=== PATIENT | male | born 1965 | race African-American/Black ===

== ENCOUNTER 2019-08-23 15:08 | Emergency (ER) | payer BC, OTHER ==
[~2019-08-23] VITALS: Ht 188 cm; Wt 111.1 kg
[2019-08-23] MEDS ORDERED: PROTONIX40 M2 PO (15:28)
[2019-08-23] MEDS ORDERED: TOPAMAX100 MG PO (15:29)
[2019-08-23 15:45] LABS: ABSOLUTE NEUTROPHILS 3.9 thou/uL (1.4-8.2); BASOPHILS 0.4 % (0.0-2.0); EOSINOPHILS 1.6 % (0.0-3.0); HEMATOCRIT 45.2 % (42.0-52.0); LYMPHOCYTES 53.5 % (24.0-44.0); MCH 28.5 pg (26.0-34.0); MCHC 33.3 g/dL (28.0-37.0); MCV 85.7 fL (80.0-100.0); MONOCYTES 4.8 % (1.0-8.0); PLATELET COUNT 247 thou/uL (150-400); POLYS 39.7 % (36.0-66.0); RBC 5.28 mil/uL (4.50-6.00); RDW 15.2 % (10.5-14.5); WBC 9.7 thou/uL (4.0-11.0)
[2019-08-23 15:48] LABS: CALCIUM 9.7 mg/dL (8.5-10.1); CREATININE 1.2 mg/dL (0.7-1.3); MAGNESIUM 1.6 mg/dL (1.8-2.4); POTASSIUM 3.8 mmol/L (3.5-5.1)
[2019-08-23 16:03] LABS: ALBUMIN 4.3 g/dL (3.4-5.0); DIRECT BILIRUBIN < 0.1 mg/dL (<0.1-0.2); SGOT 36 U/L (15-37); SGPT 57 U/L (30-65); TOTAL BILIRUBIN 0.4 mg/dL (<0.1-1.0); TOTAL PROTEIN 7.9 g/dL (6.4-8.2)
--- NOTE | 2019-08-23 16:22 | EKG ---
[facility] [place] [address] ELECTROCARDIOGRAM REPORT Name: SAMREEN DYER Room #: REG [facility]#: [id number] Admission: 08/23/19 Attend Phys: Discharge: Date of : 69 Report #: [id number] THIS REPORT FOR: cc: FAM - Family physician unknown FAM - Family physician unknown Wilfredo Rodriguez MD [facility] ~ THIS REPORT FOR: //name// [facility] ED Test Date: 2019-08-23 Test Time: 16:08:18 Pat Name: SAMREEN DYER Department: Room: Gender: M Quality Assistant: : 1965 Requested By: Ronald Jay Order Number: [id number] MD: Wilfredo Rodriguez Measurements Intervals [place] Rate: 71 P: 56 KS: 166 QRS: 56 QRSD: 86 T: 17 QT: 362 QTc: 394 Interpretive Statements Sinus rhythm Normal tracing Compared to ECG 12/23/2007 01:40:02 No significant changes Electronically Signed On 08-23-2019 16:21:16 CDT by Wilfredo Rodriguez [email or web address] <ELECTRONICALLY SIGNED> By: Wilfredo Rodriguez MD, FAC 08/23/19 1621 1608 07 Wilfredo Rodriguez MD, FACC /EPI
[2019-08-23 16:57] VITALS: BP 145/82
== END 2019-08-23 16:58 | disposition home or self-care (01) ==
LOC: ER 15:08
PROVIDERS: Emergency Medicine
DX: R11.0 Nausea (principal); F17.210 Nicotine dependence, cigarettes, uncomplicated; Z20.828 Contact with and (suspected) exposure to other viral communicable diseases

== ENCOUNTER 2020-10-07 12:46 | Emergency (ER) | payer BC, OTHER ==
[~2020-10-07] VITALS: Ht 188 cm; Wt 117.9 kg
[~2020-10-07 12:46] MED LIST: PROTONIX40 M2 PO; TOPAMAX100 MG PO
[2020-10-07] MEDS ORDERED: CYCLOBENZAPRINE5 MG PO (15:30)
[2020-10-07 15:47] VITALS: BP 168/88
== END 2020-10-07 16:21 | disposition home or self-care (01) ==
LOC: ER 12:46
DX: S39.012A Strain of muscle, fascia and tendon of lower back, initial encounter (principal); S20.212A Contusion of left front wall of thorax, initial encounter; M54.2 Cervicalgia; M51.26 Other intervertebral disc displacement, lumbar region; K21.9 Gastro-esophageal reflux disease without esophagitis; G43.909 Migraine, unspecified, not intractable, without status migrainosus; M19.90 Unspecified osteoarthritis, unspecified site; F17.210 Nicotine dependence, cigarettes, uncomplicated; V43.52XA Car driver injured in collision with other type car in traffic accident, initial encounter; Y93.I9 Activity, other involving external motion; Y92.89 Other specified places as the place of occurrence of the external cause; Y99.8 Other external cause status

== ENCOUNTER → 2021-02-09 | Outpatient (CLI) | payer BC, OTHER ==
[~2021-02-09] VITALS: Ht 188 cm; Wt 122.5 kg
[~2021-02-09] MED LIST changes: +CYCLOBENZAPRINE5 MG PO; +DORYX MPC120 MG PO; +HYDROCODON-ACE1 EAC7 PO; +LYRICA100 MG PO; +MELOXICAM15 MG PO; +PROAIR HFA8.5 GM INH
[2021-02-09 09:53] VITALS: BP 153/94
--- NOTE | 2021-02-09 10:29 | NUR ---
Pain Clinic Assessment: 1. History of Osteoarthritis: BACK History of Rheumatoid Arthritis: NO 2. Height: 6 ft. 2 in. 188.0 cm. Weight: 270.0 lb. oz. 122.472 kg. Patient's BMI: 34.7 3. Vital Signs: BP: 153/94 Pulse: 73 Resp: 16 Temp: 02 Sat: 100 ECG Mon: 4. Pain Intensity: 3 5. Fall Risk: Dizziness: N Needs help standing or walking: N Fallen in the last 3 months: N Fall risk comments: 6. Patient on Blood Thinner: None 7. History of Hypertension: N 8. Opioid Therapy greater than 6 weeks: Opiate Contract Signed: 9. Risk Assessment Tool Provided: 0-LOW RISK 10. Functional Assessment Tool: 11. Recreational Drug Use: Never Drug Type: Tobacco Use: Current Every Day Smoker Tobacco Type: Cigarettes Amount or Packs/day: 1/2 PPD How Many Years: 20 Alcohol Use: No Frequency: Quant:
== END ==
LOC: PAIN 07:03
PROVIDERS: ATTEND Anesthesiology Pain Medicine
DX: M54.16 Radiculopathy, lumbar region (principal); M54.50 Low back pain, unspecified; M79.605 Pain in left leg; Z79.899 Other long term (current) drug therapy

== ENCOUNTER → 2021-02-16 | Outpatient (CLI) | payer BC, OTHER ==
[~2021-02-16] VITALS: Ht 188 cm; Wt 121.1 kg
[2021-02-16 13:34] VITALS: BP 154/83
--- NOTE | 2021-02-16 13:37 | NUR ---
Pain Clinic Assessment: 1. History of Osteoarthritis: BACK History of Rheumatoid Arthritis: NO 2. Height: 6 ft. 2 in. 188.0 cm. Weight: 267.0 lb. oz. 121.111 kg. Patient's BMI: 34.3 3. Vital Signs: BP: 154/83 Pulse: 69 Resp: 16 Temp: 02 Sat: 98 ECG Mon: 4. Pain Intensity: 3 5. Fall Risk: Dizziness: N Needs help standing or walking: N Fallen in the last 3 months: N Fall risk comments: 6. Patient on Blood Thinner: None 7. History of Hypertension: N 8. Opioid Therapy greater than 6 weeks: Opiate Contract Signed: 9. Risk Assessment Tool Provided: 0-LOW RISK 10. Functional Assessment Tool: 11. Recreational Drug Use: Never Drug Type: Tobacco Use: Current Every Day Smoker Tobacco Type: Cigarettes Amount or Packs/day: 1/2 pack How Many Years: 20 Alcohol Use: No Frequency: Quant:
== END | disposition home or self-care (01) ==
LOC: PAIN 09:49
PROVIDERS: ATTEND Anesthesiology Pain Medicine
DX: M54.16 Radiculopathy, lumbar region (principal); G89.29 Other chronic pain; F17.210 Nicotine dependence, cigarettes, uncomplicated; Z98.890 Other specified postprocedural states; Z79.899 Other long term (current) drug therapy